=== PATIENT | female | born 1975 | race Caucasian/White ===

== ENCOUNTER → 2016-10-14 | Outpatient (CLI) | payer OTHER ==
[2016-10-14 17:50] LABS: ANION GAP 10 (5-19); BLOOD UREA NITROGEN 17 mg/dL (7-20); CALCIUM 9.8 mg/dL (8.4-10.2); CARBON DIOXIDE 31 mmol/L (22-30); CHLORIDE 100 mmol/L (98-107); CREATININE RESULT 1.13 mg/dL (0.52-1.25); GLUCOSE 91 mg/dL (75-110); POTASSIUM 4.4 mmol/L (3.6-5.0); SODIUM 140.6 mmol/L (137-145)
--- NOTE | 2016-10-14 21:59 | EKG REPORT ---
SEVERITY:- NORMAL ECG - SINUS RHYTHM : Confirmed by: Halina Peters MD 14-Oct-2016 21:59:19
== END ==
LOC: CCC 15:56
DX: I10 Essential (primary) hypertension (principal); I50.9 Heart failure, unspecified
CPT/HCPCS: 36415; 80048; 93005; 93010

== ENCOUNTER → 2016-10-23 | Outpatient (CLI) | payer OTHER ==
[~2016-10-23] MED LIST: REGADENOSON INJ 0.4 MG/5 ML DISP.SYRIN IV ONE
--- NOTE | 2016-10-23 10:51 | XCELERA REPORT ---
[address] [address] Transthoracic Echocardiogram Report Name: ALISTAIR CAMACHO Age: 41 yrs Gender: Female : 1975 Patient Status: Outpatient Patient Location: [facility] Study Date: 10/23/2016 09:52 AM Height: 63 in Weight: 313 lb BSA: 2.3 m2 Procedure: A complete two-dimensional transthoracic echocardiogram was performed (2D, M-mode, spectral and color flow Doppler). The study was technically difficult with many images being suboptimal in quality. Reason For Study: HTN, CHF Ordering Physician: [facility] Performed By: Manasa Medel Interpretation Summary The left ventricular ejection fraction is normal. There is mild concentric left ventricular hypertrophy. The left ventricle is grossly normal size. Doppler measurements suggest pseudonormalized left ventricular relaxation, which is associated with grade II/IV or mild to moderate diastolic dysfunction Wall motion cannot be accurately commented on, but no definite regional wall motion abnormalities noted. The right ventricular systolic function is normal. The right ventricle is borderline dilated. The right atrium is normal in size The left atrial size is normal. There is no mitral regurgitation noted. There is no mitral valve stenosis. There is no aortic valve stenosis No aortic regurgitation is present. There is a trace or physiologic amount of tricuspid regurgitation Tricuspid regurgitation jet envelope not well defined to measure RV systolic pressure accurately. The aortic root is not well visualized but is probably normal size. The inferior vena cava appeared normal and decreased < 50% with respiration (RAP 10-15 mmHg) MMode/2D Measurements \T\ Calculations RVDd: 3.2 cm LVIDd: 5.1 cmFS: 23.0 % Ao root diam: 3.3 cm IVSd: 1.2 cm LVIDs: 4.0 cmEDV(Teich): 126.3 ml LVPWd: 1.2 cmESV(Teich): 68.4 ml Ao root area: 8.8 cm2 EF(Teich): 45.9 % LA dimension: 3.4 cm LVOT diam: 2.5 cm LVOT area: 5.0 cm2 Doppler Measurements \T\ Calculations MV E max abimael: MV P1/2t max abimael: Ao V2 max: LV V1 max P.7 cm/sec 123.9 cm/sec 203.2 cm/sec 5.2 mmHg MV A max abimael: MV P1/2t: 48.7 msec Ao max PG: LV V1 max: 109.0 cm/sec MVA(P1/2t): 4.5 cm2 16.5 mmHg 113.5 cm/sec MV E/A: 1.1 MV dec slope: JOSE(V,D): 2.8 cm2 744.6 cm/sec2 MV dec time: 0.15 sec PA V2 max: 102.7 cm/sec PA max P.2 mmHg Left Ventricle The left ventricle is grossly normal size. There is mild concentric left ventricular hypertrophy. The left ventricular ejection fraction is normal. Doppler measurements suggest pseudonormalized left ventricular relaxation, which is associated with grade II/IV or mild to moderate diastolic dysfunction. Wall motion cannot be accurately commented on, but no definite regional wall motion abnormalities noted. Right Ventricle The right ventricle is borderline dilated. There is normal right ventricular wall thickness. The right ventricular systolic function is normal. Atria The right atrium is normal in size. The left atrial size is normal. Interarterial septum not well visualized and not well dopplered. Cannot comment on ASD/PFO presence. Mitral Valve The mitral valve is grossly normal. There is no mitral valve stenosis. There is no mitral regurgitation noted. Aortic Valve The aortic valve is grossly normal. There is no aortic valve stenosis. No aortic regurgitation is present. Tricuspid Valve The tricuspid valve is not well visualized secondary to technical limitations. There is no tricuspid stenosis. Tricuspid regurgitation jet envelope not well defined to measure RV systolic pressure accurately. There is a trace or physiologic amount of tricuspid regurgitation. Pulmonic Valve The pulmonic valve is not well visualized. Great Vessels The aortic root is not well visualized but is probably normal size. The inferior vena cava appeared normal and decreased < 50% with respiration (RAP 10-15 mmHg). Effusions There is no pericardial effusion. : [facility] > Tor Saul
== END ==
LOC: RAD 07:55
DX: I50.9 Heart failure, unspecified (principal); I10 Essential (primary) hypertension
CPT/HCPCS: 93306; 93017; 78452; A9500; J2785; Q9969

== ENCOUNTER → 2016-12-23 | Outpatient (CLI) | payer OTHER ==
[2016-12-23 11:12] LABS: CHOLESTEROL 152.55 mg/dL (0-200); CREATININE RESULT 1.09 mg/dL (0.52-1.25); Direct HDL 64 mg/dL (>40); TRIGLYCERIDES 107 mg/dL (<150)
[2016-12-23 11:22] LABS: DIRECT LDL 70 mg/dL (<100)
[2016-12-24 07:11] LABS: FOLLICLE STIMULATING HORMONE 7.6 mIU/mL (.)
== END ==
LOC: OD 09:37
DX: I10 Essential (primary) hypertension (principal); N91.2 Amenorrhea, unspecified
CPT/HCPCS: 36415; 80061; 82565; 82947; 82950; 83001; 84402; 84403; 84443

== ENCOUNTER → 2017-01-07 | Outpatient (CLI) | payer OTHER | LOC: OD 21:28 | DX: R73.01 Impaired fasting glucose (principal) | CPT/HCPCS: 36415; 83036 ==

== ENCOUNTER → 2017-01-09 | Outpatient (CLI) | payer OTHER | LOC: RAD 12:35 | DX: E66.01 Morbid (severe) obesity due to excess calories (principal); L68.0 Hirsutism; N91.2 Amenorrhea, unspecified | CPT/HCPCS: 76856 ==

== ENCOUNTER → 2017-04-09 | Outpatient (CLI) | payer OTHER ==
--- NOTE | 2017-04-13 08:48 | WOMENS IMAGING REPORT ---
EXAM DESCRIPTION: BILAT SCREENING MAMMO W/CAD COMPLETED DATE/TIME: 04/09/2017 9:07 am REASON FOR STUDY: ROUTINE SCREENING; Z12.31 Z12.31 ENCNTR SCREEN MAMMOGRAM FOR MALIGNANT NEOPLASM O F PARDEEP COMPARISON: No previous, baseline TECHNIQUE: Standard craniocaudal and mediolateral oblique views of each breast recorded using [employer] l acquisition. LIMITATIONS: None. FINDINGS: Findings present which are benign by mammographic criteria. No suspicious masses, calcifi cations or architectural distortion. Pertinent benign findings: Benign skin and breast parenchymal calcifications. Postsurgical changes f rom bilateral breast reduction Read with the assistance of CAD. .[facility] - R2 Cenova Version 1.3 .[facility] Imaging - R2 Cenova Version 1.3 .[facility] Imaging - R2 Cenova Version 2.4 .[facility] - R2 Cenova Version 2.4 .[facility] - R2 Band Saw Filer Version 9.2 Benign mammographic findings may include one or more of the following: Smooth masses, popcorn/rim/co arse calcifications, asymmetries, post-procedure changes, and lesions with long-standing stability. IMPRESSION: BENIGN MAMMOGRAPHIC FINDINGS. BIRADS 2 BREAST DENSITY: a. The breasts are almost entirely fatty. BIRAD: 2 BENIGN FINDING(S) RECOMMENDATION: ROUTINE SCREENING Please consider bilateral screening tomosynthesis in March 2018 COMMENT: The patient has been notified of the results by letter per SA requirements. Additional no tification policies are in place for contacting patient with suspicious or incomplete findings. Quality ID #[id number]: The [employer] recommends an annual screening mammogram for women aged 40 years or over. This facility utilizes a reminder system to ensure that all patients receive reminder letters, and/or direct phone calls for appointments. This includes reminders for routine scr eening mammograms, diagnostic mammograms, or other Breast Imaging Interventions when appropriate. Th is patient will be placed in the appropriate reminder system. The [employer] (ACR) has developed recommendations for screening MRI of the breast s in certain patient populations, to be used in conjunction with mammography. Breast MRI surveillanc e may be appropriate for women with more than 20% lifetime risk of developing breast cancer as deter mined by genetic testing, significant family history of the disease, or history of mantle radiation f or Hodgkins Disease. ACR Practice Guidelines 2008. TECHNICAL DOCUMENTATION: FINDING NUMBER: (1) ASSESSMENT: (1) JOB ID: [id number] [employer]- All Rights Reserved
== END ==
LOC: WI 08:43
PROVIDERS: ATTEND Family Medicine
DX: Z12.31 Encounter for screening mammogram for malignant neoplasm of breast (principal)
CPT/HCPCS: 77067; G0202

== ENCOUNTER → 2017-05-19 | Outpatient (CLI) | payer OTHER ==
[2017-05-19 12:05] LABS: ANION GAP 11 (5-19); BLOOD UREA NITROGEN 16 mg/dL (7-20); CALCIUM 9.8 mg/dL (8.4-10.2); CARBON DIOXIDE 30 mmol/L (22-30); CHLORIDE 101 mmol/L (98-107); CREATININE RESULT 1.01 mg/dL (0.52-1.25); GLUCOSE 132 mg/dL (75-110); POTASSIUM 4.8 mmol/L (3.6-5.0); SODIUM 141.8 mmol/L (137-145)
== END ==
LOC: CCC 10:59
DX: E11.8 Type 2 diabetes mellitus with unspecified complications (principal)
CPT/HCPCS: 36415; 80048; 83036

== ENCOUNTER → 2017-09-02 | Outpatient (CLI) | payer OTHER | LOC: CCC 15:26 | DX: E11.8 Type 2 diabetes mellitus with unspecified complications (principal) | CPT/HCPCS: 36415; 83036 ==

== ENCOUNTER 2017-10-26 22:03 | Emergency (ER) | payer MEDICARE, OTHER ==
[2017-10-26 23:10] VITALS: BP 144/75
--- NOTE | 2017-10-27 00:40 | RADIOLOGY REPORT (SQ) ---
EXAM DESCRIPTION: FOOT RIGHT COMPLETE CLINICAL HISTORY: ankle/ foot injury COMPARISON: None. FINDINGS: 3 views of the right foot. No acute fracture or dislocation. The tarsals and metatarsals appear appropriately aligned. Plantar calcaneal spur. Enthesophyte at the Achilles tendon insertion. Normal osseous mineralization. Diffuse soft tissue swelling. IMPRESSION: 1. No acute fracture or dislocation.
--- NOTE | 2017-10-27 00:40 | RADIOLOGY REPORT (SQ) ---
EXAM DESCRIPTION: ANKLE RIGHT COMPLETE CLINICAL HISTORY: ankle/ foot injury COMPARISON: None. FINDINGS: 3 views of the right ankle. Tibial plafond and talar dome are appropriately aligned. Diffuse soft tissue swelling. No acute fracture or dislocation. Base of the fifth metatarsal appears intact. Plantar calcaneal spur. Enthesophyte at the Achilles tendon insertion. IMPRESSION: No acute fracture or dislocation.
[2017-10-27] MEDS ORDERED: COLCHICINE 0.6 MG TABLET PO ONE ×2 (00:58)
--- NOTE | 2017-10-27 01:00 | ER Document Report ---
ED General - General Chief Complaint: Ankle Pain Stated Complaint: FOOT/ANKLE PAIN Time Seen by Provider: 10/27/17 00:17 Notes: She is a 42-year-old female presents with complaint of pain in her right foot. Patient says she first noticed a few days ago. She said she does not think she injured it but she noticed when she went to step off a porch step and she felt pain into her right big toe. She said she then had some swelling and pain into her right first metatarsophalangeal joint. Since then swelling and pain has spread into the remainder of her foot. No pain into her leg knee or thigh. No history of gout. She does have history of cellulitis in her left foot. She is diabetic. No recent abrasions lacerations to the foot. TRAVEL OUTSIDE OF THE [place] IN LAST 30 DAYS: No - Related Data Allergies/Adverse Reactions: acetaminophen [From Vicodin] Allergy (Verified 12/31/15 00:12) codeine [Codeine] Allergy (Verified 12/31/15 00:12) hydrocodone bitartrate [From Vicodin] Allergy (Verified 12/31/15 00:12) sumatriptan [From Imitrex] Allergy (Verified 12/31/15 00:12) sumatriptan succinate [From Imitrex] Allergy (Verified 12/31/15 00:12) Past Medical History - Social History Smoking Status: Unknown if Ever Smoked Frequency of alcohol use: None Drug Abuse: None Family History: Reviewed & Not Pertinent Patient has suicidal ideation: No Patient has homicidal ideation: No - Past Medical History Cardiac Medical History: Reports: Hx Congestive Heart Failure Pulmonary Medical History: Reports: Hx Bronchitis, Hx Pneumonia Neurological Medical History: Reports: Hx Migraine Renal/ Medical History: Reports: Hx Kidney Stones. Denies: Hx Peritoneal Dialysis GI Medical History: Reports: Hx Diverticulitis Psychiatric Medical History: Reports: Hx Attention Deficit Hyperactivity Disorder, Hx Depression Past Surgical History: Reports: Hx Breast Surgery - Reduction, Hx Cholecystectomy, Hx Oral Surgery - [place], Hx Orthopedic Surgery - plantar fascitis left and right foot, Hx Tubal Ligation - Immunizations Immunizations up to date: Yes Hx Diphtheria, Pertussis, Tetanus Vaccination: Yes Hx Pneumococcal Vaccination: 05/15/14 Review of Systems - Review of Systems Notes: My Normal Review Basic REVIEW OF SYSTEMS: CONSTITUTIONAL : Denies fever, chills, or sweats. Denies recent illness. MUSCULOSKELETAL: Right foot pain SKIN: Denies rash or skin lesions. NEUROLOGICAL: Denies sensory or motor loss. ALL OTHER SYSTEMS REVIEWED AND NEGATIVE. Physical Exam - Vital signs Vitals: Temp Pulse Resp BP Pulse Ox 98.4 F 89 14 144/75 H 97 10/26/17 23:09 10/26/17 23:09 10/26/17 23:09 10/26/17 23:09 10/26/17 23:09 - Notes Notes: General Appearance: Well nourished, alert, cooperative, no acute distress, mild to moderate obvious discomfort. Vitals: reviewed, See vital signs table. Extremities: good pulses in all extremities, patient does have moderate swelling that is only in the right foot itself. The leg itself does not have any further swelling. There is a faint redness over the dorsum of the foot. She does have darker redness and swelling at the first metatarsophalangeal joint. There are no abrasions or wounds to the foot. She has good capillary refill in all toes. Good distal sensation. Good pulses. Foot is diffusely tender to palpation. Skin: warm, dry, appropriate color, no rash Neuro: speech clear, oriented x 3, normal affect, responds appropriately to questions. Course - Re-evaluation Re-evalutation: 10/27/17 06:44 I suspect that she most likely has gout. She does have a previous history of cellulitis and is diabetic and therefore I will still cover for possible cellulitis. Informed patient I think is less likely cellulitis being that the redness of the foot is more of a faint pink; however, she does have swelling this spreads will be on just the first MTP and therefore felt saline is still possible because the amount of swelling she has in her foot is atypical for gout itself. I think most likely this will be gout mainly because the pain is swelling to start in the first metatarsophalangeal joint. I have given the patient colchicine. Started on indomethacin as well as doxycycline. I encouraged her return to ER immediately if she has increased swelling, spreading redness, or fevers. I encouraged her follow-up closely with her primary care doctor. Patient agrees with plan will be discharged home. Dictation of this chart was performed using voice recognition software; therefore, there may be some unintended grammatical errors. - Vital Signs Vital signs: Temp Pulse Resp BP Pulse Ox 98.4 F 89 14 144/75 H 97 10/26/17 23:09 10/26/17 23:09 10/26/17 23:09 10/26/17 23:09 10/26/17 23:09 Discharge - Discharge Clinical Impression: Foot pain, right Condition: Good Disposition: HOME, SELF-CARE Additional Instructions: Gout Diet Changing your diet can decrease the uric acid in your blood. High levels of uric acid cause gouty arthritis and uric acid kidney stones. If you have gout , you should avoid meats that are high in purine. Meat products to avoid include liver, kidneys, and brains. In general, poultry is better than red meats. Seafoods to avoid include anchovies, sardines, alvarado, mackerel, and scallops. In addition to limiting purine-rich foods, people with gout should limit protein intake to 10-15% of total calories. Carbohydrate intake should be around 50% of total daily calories. Limit fat intake to 30% of total daily calories. Cholesterol intake should be less than 300 mg/day. Maintain or achieve a healthy body weight. Weight loss should be gradual. Rapid weight loss can actually increase uric acid levels temporarily. Alcohol, especially beer, should be avoided. Get plenty of fluids. This dilutes urinary uric acid, and helps prevent uric acid kidney stones. Drink eight to twelve cups of water daily. I suspect that most likely you have gout based on the fact that the pain and swelling initiated in your big toe. You are diabetic and there is some associated redness and swelling in your foot and therefore cellulitis is also possibility. I think it is less likely being that the redness is more faint; however, you do have a previous history of cellulitis in your foot. I will therefore treat you for both gout as well as cellulitis. You need to return to the ER immediately if you have any spreading redness, swelling, or fevers, or worsening pain in your foot. Prescriptions: Doxycycline Hyclate 100 mg PO BID #14 tablet Indomethacin [Indocin 50 mg Capsule] 50 mg PO TID #15 capsule Referrals: YOHAN PHAN MD [Primary Care Provider] - Follow up in 3-5 days
[2017-10-27] MEDS ORDERED: DOXYCYCLINE HYCLATE 100 MG TABLET PO ONE (01:03)
[2017-10-27] MEDS ORDERED: INDOMETHACIN 50 MG CAPSULE PO ONE (01:03)
== END 2017-10-27 01:30 | disposition home or self-care (01) ==
LOC: ER 22:03
DX: M79.671 Pain in right foot (principal); M25.571 Pain in right ankle and joints of right foot; M79.89 Other specified soft tissue disorders; E11.9 Type 2 diabetes mellitus without complications; X58.XXXA Exposure to other specified factors, initial encounter
CPT/HCPCS: 99283; 73610; 73630; A9270 ×3; J3490

== ENCOUNTER → 2017-11-06 | Outpatient (CLI) | payer MEDICARE, OTHER ==
--- NOTE | 2017-11-06 14:44 | RADIOLOGY REPORT (SQ) ---
EXAM DESCRIPTION: CHEST PA/LAT COMPLETED DATE/TIME: 11/06/2017 2:06 pm REASON FOR STUDY: E66.01 MORBID (SEVERE) OBESITY DUE TO EXCESS CALORIES I10 ESSENTIAL (PRIMAR E66.01 MORBID (SEVERE) OBESITY DUE TO EXCESS CALORIES I10 ESSENTIAL (PRIMARY) HYPERTENSION E11.9 TYPE 2 DIABETES MELLITUS WITHOUT COMPLICATIONS COMPARISON: 05/14/2014. NUMBER OF VIEWS: Two view. TECHNIQUE: Frontal and lateral radiographic views of the chest acquired. LIMITATIONS: None. FINDINGS: LUNGS AND PLEURA: No opacities, masses or pneumothorax. No pleural effusion. MEDIASTINUM AND HILAR STRUCTURES: No masses. No contour abnormalities. HEART AND VASCULAR STRUCTURES: Heart enlarged without failure. Aorta normal for age. BONES: No acute findings. HARDWARE: None in the chest. OTHER: No other significant finding. IMPRESSION: CARDIAC ENLARGEMENT WITHOUT FAILURE. TECHNICAL DOCUMENTATION: JOB ID: [id number] [employer]- All Rights Reserved Reading location - IP/workstation name: [email or web address]
[2017-11-06 14:54] LABS: ABSOLUTE BASOPHILS # (AUTO) 0.1 10^3/uL (0.0-0.2); ABSOLUTE EOSINOPHILS # (AUTO) 0.3 10^3/uL (0.0-0.6); ABSOLUTE LYMPHOCYTES (AUTO) 2.2 10^3/uL (0.5-4.7); ABSOLUTE MONOCYTES (AUTO) 0.6 10^3/uL (0.1-1.4); ABSOLUTE NEUT (AUTO) 3.8 10^3/uL (1.7-8.2); BASOPHILS % (AUTO) 0.8 % (0-2); EOSINOPHILS % (AUTO) 3.8 % (0-6); HEMATOCRIT 44.9 % (36.0-47.0); HEMOGLOBIN 14.9 g/dL (12.0-15.5); LYMPHOCYTES % (AUTO) 31.8 % (13-45); MEAN CORPUSCULAR HGB CONC 33.2 g/dL (32.0-36.0); MEAN CORPUSCULAR VOLUME 96 fl (80-97); MONOCYTES % (AUTO) 8.7 % (3-13); PLATELET COUNT 243 10^3/uL (150-450); RED BLOOD COUNT 4.67 10^6/uL (3.72-5.28); RED CELL DISTRIBUTION WIDTH 14.3 % (11.5-14.0); SEGMENTED NEUTROPHILS % (AUTO) 54.9 % (42-78); TOTAL CELLS COUNTED % (AUTO) 100 %
[2017-11-06 15:07] LABS: ALANINE AMINOTRANSFERASE 68 U/L (9-52); ALBUMIN 4.3 g/dL (3.5-5.0); ALKALINE PHOSPHATASE 101 U/L (38-126); ANION GAP 8 (5-19); ASPARTATE AMINO TRANSFERASE 46 U/L (14-36); BILIRUBIN,DIRECT 0.4 mg/dL (0.0-0.4); BILIRUBIN,TOTAL 0.7 mg/dL (0.2-1.3); BLOOD UREA NITROGEN 16 mg/dL (7-20); CALCIUM 9.7 mg/dL (8.4-10.2); CARBON DIOXIDE 30 mmol/L (22-30); CHLORIDE 104 mmol/L (98-107); GLUCOSE 122 mg/dL (75-110); POTASSIUM 4.4 mmol/L (3.6-5.0); SODIUM 141.9 mmol/L (137-145); TOTAL PROTEIN 7.2 g/dL (6.3-8.2)
--- NOTE | 2017-11-06 20:51 | EKG REPORT ---
SEVERITY:- ABNORMAL ECG - SINUS RHYTHM NONSPECIFIC INTRAVENTRICULAR CONDUCTION DELAY : Confirmed by: Castro Spence MD 06-Nov-2017 20:50:50
== END ==
LOC: RAD 13:44
PROVIDERS: ATTEND Surgery
DX: Z01.810 Encounter for preprocedural cardiovascular examination (principal); Z01.811 Encounter for preprocedural respiratory examination; Z01.812 Encounter for preprocedural laboratory examination; Z01.818 Encounter for other preprocedural examination; E11.9 Type 2 diabetes mellitus without complications; I10 Essential (primary) hypertension; E66.01 Morbid (severe) obesity due to excess calories
CPT/HCPCS: 36415; 71046; 80053; 84443; 85025; 93005; 93010

== ENCOUNTER 2018-05-19 14:56 | Emergency (ER) | payer MEDICARE, MEDICAID ==
--- NOTE | 2018-05-19 16:10 | ER Document Report ---
ED Medical Screen (RME) - General Chief Complaint: Leg Pain Stated Complaint: LEGS/FEET NUMBNESS Time Seen by Provider: 05/19/18 15:58 Mode of Arrival: Ambulatory Information source: Patient Notes: Patient is a 42-year-old female who presents with chief complaint of bilateral leg and feet pain. Patient reports this pain has been going on for approximately 45 days. Patient has been seen by her primary care provider Dr. Jayden Pool who diagnosed her with neuropathy. He referred her to a computer hardware developer who has tried orthotics and vitamin therapy. Patient reports none of this is helping. Patient reports she was supposed to have a follow-up appointment today at 130 however she showed up late so they canceled the appointment. Patient states the pain is uncontrollable and she came to the ER unsure of what else to do. I did explain to the patient that there was no lab work or imaging indicated at this time. Patient will be waiting to see a provider in the back for a full physical assessment. Exam: No acute distress noted. Patient ambulates with slow but steady gait. I have greeted and performed a rapid initial assessment of this patient. A comprehensive ED assessment and evaluation of the patient, analysis of test results and completion of the medical decision making process will be conducted by additional ED providers. Dictation of this chart was performed using voice recognition software; therefore, there may be some unintended grammatical errors. TRAVEL OUTSIDE OF THE [place] IN LAST 30 DAYS: No - Related Data Allergies/Adverse Reactions: acetaminophen [From Vicodin] Allergy (Verified 05/19/18 14:59) codeine [Codeine] Allergy (Verified 05/19/18 14:59) hydrocodone bitartrate [From Vicodin] Allergy (Verified 05/19/18 14:59) sumatriptan [From Imitrex] Allergy (Verified 05/19/18 14:59) sumatriptan succinate [From Imitrex] Allergy (Verified 05/19/18 14:59) Past Medical History - Social History Family history: Reviewed & Not Pertinent - Past Medical History Cardiac Medical History: Reports: Hx Congestive Heart Failure Pulmonary Medical History: Reports: Hx Bronchitis, Hx Pneumonia Neurological Medical History: Reports: Hx Migraine Renal/ Medical History: Reports: Hx Kidney Stones. Denies: Hx Peritoneal Dialysis GI Medical History: Reports: Hx Diverticulitis Psychiatric Medical History: Reports: Hx Attention Deficit Hyperactivity Disorder, Hx Depression Past Surgical History: Reports: Hx Breast Surgery - Reduction, Hx Cholecystectomy, Hx Oral Surgery - [place], Hx Orthopedic Surgery - plantar fascitis left and right foot, Hx Tubal Ligation - Immunizations Immunizations up to date: Yes Hx Diphtheria, Pertussis, Tetanus Vaccination: Yes Physical Exam - Vital signs Vitals: Temp Pulse Resp BP Pulse Ox 98.6 F 96 14 155/97 H 94 05/19/18 15:02 05/19/18 15:02 05/19/18 15:02 05/19/18 15:02 05/19/18 15:02 Course - Vital Signs Vital signs: Temp Pulse Resp BP Pulse Ox 98.6 F 96 14 155/97 H 94 05/19/18 15:02 05/19/18 15:02 05/19/18 15:02 05/19/18 15:02 05/19/18 15:02 Doctor's Discharge - Discharge Referrals: YOHAN POOL MD [Primary Care Provider] - Follow up as needed
--- NOTE | 2018-05-19 16:41 | ER Document Report ---
HPI - HPI Patient complains to provider of: bilateral feet pain Onset: Other - 2 months Pain Level: 4 Context: 42 yo female c/o bilateral feet burning, tingling, stabbing pain for 2 months. Saw early Yrn who sent her to a senior production supervisor for nerve conduction test because he thinks it is peripheral neuropathy. She was unable to have her second appointment in Dr. Cross just wanted her to use orthotics. The patient had another appointment with [facility] podiatry in [place] and there was a mixup on the appointment time so they canceled that appointment. She is here because of the pain which is keeping her from resting at night. Associated Symptoms: None Exacerbated by: Standing, Walking Relieved by: Denies Similar symptoms previously: Yes Recently seen / treated by doctor: Yes - ROS ROS below otherwise negative: Yes Systems Reviewed and Negative: Yes All other systems reviewed and negative - REPRODUCTIVE Reproductive: DENIES: : - DERM Skin Color: Normal Past Medical History - General Information source: Patient - Social History Smoking Status: Never Smoker Lives with: Spouse/Significant other Family History: Reviewed & Not Pertinent Patient has suicidal ideation: No Patient has homicidal ideation: No - Past Medical History Cardiac Medical History: Reports: Hx Congestive Heart Failure Pulmonary Medical History: Reports: Hx Bronchitis, Hx Pneumonia Neurological Medical History: Reports: Hx Migraine Renal/ Medical History: Reports: Hx Kidney Stones. Denies: Hx Peritoneal Dialysis GI Medical History: Reports: Hx Diverticulitis Psychiatric Medical History: Reports: Hx Attention Deficit Hyperactivity Disorder, Hx Depression Past Surgical History: Reports: Hx Breast Surgery - Reduction, Hx Cholecystectomy, Hx Oral Surgery - [place], Hx Orthopedic Surgery - plantar fascitis left and right foot, Hx Tubal Ligation - Immunizations Immunizations up to date: Yes Hx Diphtheria, Pertussis, Tetanus Vaccination: Yes Hx Pneumococcal Vaccination: 05/15/14 Vertical Provider Document - CONSTITUTIONAL Agree With Documented VS: Yes Exam Limitations: No Limitations - INFECTION CONTROL TRAVEL OUTSIDE OF THE [place] IN LAST 30 DAYS: No - HEENT HEENT: Normal ENT Exam, Normocephalic - NECK Neck: Supple, Thyroid Normal - MUSCULOSKELETAL/EXTREMETIES Musculoskeletal/Extremeties: MAEW, FROM, Tender - to light touch to both feet Course - Re-evaluation Re-evalutation: 05/19/18 18:52 Chemistry still pending because she was busy per the shift lab technician. 05/19/18 labs OK except for elevated AST, copies given to her for PCP follow up - Vital Signs Vital signs: Temp Pulse Resp BP Pulse Ox 98.6 F 96 14 155/97 H 94 05/19/18 15:02 05/19/18 15:02 05/19/18 15:02 05/19/18 15:02 05/19/18 15:02 - Laboratory Result Diagrams: 05/19/18 17:15 05/19/18 17:15 Discharge - Discharge Clinical Impression: Paresthesia of foot, bilateral, Elevated AST (SGOT) Condition: Good Disposition: HOME, SELF-CARE Instructions: Numbness or Paresthesia ([facility]) Additional Instructions: Follow-up with [facility] podiatry on May 28 as planned and see them for primary care. Schedule an appointment with family practice or internal medicine doctor at [facility] Try the pain medication at night to see if that helps Return to the emergency room for any worsening of symptoms Copy of lab were given to you, 1 of you liver enzymes is elevated Prescriptions: Oxycodone HCl/Acetaminophen [Percocet 5-325 mg Tablet] 1 tab PO ASDIR PRN #10 tablet PRN Reason: Referrals: YOHAN PHAN MD [Primary Care Provider] - Follow up tomorrow
[2018-05-19 17:38] LABS: ABSOLUTE EOSINOPHILS # (AUTO) 0.1 10^3/uL (0.0-0.6); ABSOLUTE LYMPHOCYTES (AUTO) 1.8 10^3/uL (0.5-4.7); ABSOLUTE MONOCYTES (AUTO) 0.5 10^3/uL (0.1-1.4); BASOPHILS % (AUTO) 0.7 % (0-2); EOSINOPHILS % (AUTO) 2.3 % (0-6); HEMATOCRIT 42.7 % (36.0-47.0); LYMPHOCYTES % (AUTO) 27.5 % (13-45); MEAN CORPUSCULAR HEMOGLOBIN 32.8 pg (27.0-33.4); MEAN CORPUSCULAR HGB CONC 32.8 g/dL (32.0-36.0); MEAN CORPUSCULAR VOLUME 100 fl (80-97); MONOCYTES % (AUTO) 7.3 % (3-13); PLATELET COUNT 232 10^3/uL (150-450); RED BLOOD COUNT 4.26 10^6/uL (3.72-5.28); SEGMENTED NEUTROPHILS % (AUTO) 62.2 % (42-78); TOTAL CELLS COUNTED % (AUTO) 100 %; WHITE BLOOD COUNT 6.4 10^3/uL (4.0-10.5)
[2018-05-19 18:57] LABS: ALANINE AMINOTRANSFERASE 50 U/L (9-52); ALBUMIN 4.2 g/dL (3.5-5.0); ALKALINE PHOSPHATASE 99 U/L (38-126); ANION GAP 9 (5-19); ASPARTATE AMINO TRANSFERASE 100 U/L (14-36); BILIRUBIN,DIRECT 0.5 mg/dL (0.0-0.4); BILIRUBIN,TOTAL 1.2 mg/dL (0.2-1.3); BLOOD UREA NITROGEN 12 mg/dL (7-20); CALCIUM 9.6 mg/dL (8.4-10.2); CARBON DIOXIDE 33 mmol/L (22-30); CHLORIDE 98 mmol/L (98-107); GLUCOSE 110 mg/dL (75-110); POTASSIUM 3.5 mmol/L (3.6-5.0); SODIUM 139.8 mmol/L (137-145); TOTAL PROTEIN 7.6 g/dL (6.3-8.2)
[2018-05-19 19:38] VITALS: BP 148/86
== END 2018-05-19 19:37 | disposition home or self-care (01) ==
LOC: ER 14:56
DX: M79.672 Pain in left foot (principal); M79.671 Pain in right foot; I50.9 Heart failure, unspecified; Z87.442 Personal history of urinary calculi; Z90.49 Acquired absence of other specified parts of digestive tract; Z98.51 Tubal ligation status
CPT/HCPCS: 36415; 80053; 82962; 83735; 85025; 99283

== ENCOUNTER → 2018-05-22 | Outpatient (CLI) | payer MEDICARE, MEDICAID | LOC: LAB 13:49 | PROVIDERS: ATTEND Internal Medicine | DX: E53.8 Deficiency of other specified B group vitamins (principal) | CPT/HCPCS: 36415; 82607 ==

== ENCOUNTER → 2018-06-21 | Outpatient (CLI) | payer MEDICARE, MEDICAID ==
--- NOTE | 2018-06-22 08:22 | RADIOLOGY REPORT (SQ) ---
EXAM DESCRIPTION: MRI HEAD COMBO COMPLETED DATE/TIME: 06/21/2018 6:12 pm REASON FOR STUDY: R55 SYNCOPE AND COLLAPSE R55 SYNCOPE AND COLLAPSE COMPARISON: None. TECHNIQUE: Multiplanar imaging includes noncontrasted T1, T2, FLAIR, diffusion with ADC map and post gadolinium contrast T1 sequences. Images stored on PACS. CONTRAST TYPE AND DOSE: 15 mL Dotarem. RENAL FUNCTION: GFR > 60. LIMITATIONS: None. FINDINGS: ANATOMY: No anomalies. Normal vascular flow voids. Pituitary fossa normal. CSF SPACES: Normal in size and contour. No hemorrhage. CEREBRUM: Sulci and gyri normal in size and contour. Normal white matter signal on FLAIR imaging. No evidence of hemorrhage, mass, or extraaxial fluid collection. No abnormal enhancement post contrast. POSTERIOR FOSSA: No signal alteration. No hemorrhage. No edema, masses, or mass effect. Internal mynor tory canals, cerebellopontine angles, mastoids normal. No enhancing lesions. No abnormal enhancement post contrast. DIFFUSION IMAGING: Negative for acute or subacute infarction. ORBITS: No masses. Globes normal. PARANASAL SINUSES: No fluid levels. Mucous retention cyst in the left maxillary sinus. OTHER: No other significant finding. IMPRESSION: NORMAL MRI OF THE BRAIN WITHOUT AND WITH INTRAVENOUS GADOLINIUM CONTRAST. INCIDENTAL MUCOUS RETENTION CYST IN THE LEFT MAXILLARY SINUS. EVIDENCE OF ACUTE STROKE: NO. TECHNICAL DOCUMENTATION: JOB ID: [id number] [employer]- All Rights Reserved Reading location - IP/workstation name: [email or web address]
== END ==
LOC: RAD 17:53
PROVIDERS: ATTEND Physician Assistant
DX: R55 Syncope and collapse (principal)
CPT/HCPCS: 70553; 82565

== ENCOUNTER → 2018-07-01 | Outpatient (CLI) | payer MEDICAID, MEDICARE ==
--- NOTE | 2018-07-02 13:27 | RADIOLOGY REPORT (SQ) ---
EXAM DESCRIPTION: MRI ABDOMEN WITHOUT COMPLETED DATE/TIME: 07/01/2018 7:50 pm REASON FOR STUDY: R74.8 ABNORMAL LEVELS OF OTHER SERUM ENZYMES R74.8 ABNORMAL LEVELS OF OTHER SERUM ENZYMES COMPARISON: CT angio chest 05/23/2014 TECHNIQUE: Noncontrast imaging with attention to the liver, including in and out of phase T1 sequenc es, T2, stir images as well. LIMITATIONS: None. FINDINGS: ADRENAL GLANDS: Normal configuration. No mass. GALLBLADDER: Surgically absent LIVER AND BILIARY STRUCTURES: Normal. No ductal dilatation. No common duct stones are identified SPLEEN: Normal. PANCREAS: Normal. Peripancreatic tissues normal. PERITONEUM: No ascites, gross adenopathy or implants. KIDNEYS: Normal size. No masses. No hydronephrosis. Benign renal parapelvic cysts are present. OTHER: Small hiatal hernia. IMPRESSION: Post cholecystectomy. Non contrasted MRI of the liver and biliary system is unremarkabl e. TECHNICAL DOCUMENTATION: JOB ID: [id number] [employer]- All Rights Reserved Reading location - IP/workstation name: [facility]
== END ==
LOC: RAD 19:45
PROVIDERS: ATTEND Physician Assistant
DX: R74.8 Abnormal levels of other serum enzymes (principal)
CPT/HCPCS: 74181

== ENCOUNTER → 2020-02-03 | Outpatient (CLI) | payer MEDICARE, MEDICAID ==
--- NOTE | 2020-02-03 13:57 | WOMENS IMAGING REPORT ---
EXAM DESCRIPTION: BILAT SCREENING MAMMO W/CAD IMAGES COMPLETED DATE/TIME: 02/03/2020 10:31 am REASON FOR STUDY: Z12.31 ENCOUNTER FOR SCREENING MAMMOGRAM FOR MALIGNANT NEOPLASM OF BREAST Z12.31 ENCNTR SCREEN MAMMOGRAM FOR MALIGNANT NEOPLASM OF PARDEEP COMPARISON: 04/09/2017. EXAM PARAMETERS: Standard craniocaudal and mediolateral oblique views of each breast recorded using digital acquisition. Read with the assistance of CAD. .[facility] [employer] Version 9.2 LIMITATIONS: None. FINDINGS: Findings present which are benign by mammographic criteria. No suspicious masses, calcifi cations or architectural distortion. Pertinent benign findings: Benign calcifications. Benign mammographic findings may include one or more of the following: Smooth masses, popcorn/rim/co arse calcifications, asymmetries, post-procedure changes, and lesions with long-standing stability. IMPRESSION: BENIGN MAMMOGRAPHIC FINDINGS. BIRADS 2 BREAST DENSITY: a. The breasts are almost entirely fatty. BIRAD: ASSESSMENT: 2 BENIGN FINDING(S) RECOMMENDATION: ROUTINE SCREENING COMMENT: The patient has been notified of the results by letter per [place] requirements. Additional no tification policies are in place for contacting patient with suspicious or incomplete findings. Quality ID #[id number]: [employer] recommends an annual screening mammogram for women aged 40 years or over. This facility utilizes a reminder system to ensure that all patients receive reminder letters, and/or direct phone calls for appointments. This includes reminders for routine scr eening mammograms, diagnostic mammograms, or other Breast Imaging Interventions when appropriate. Th is patient will be placed in the appropriate reminder system. TECHNICAL DOCUMENTATION: FINDING NUMBER: (1) ASSESSMENT: (1) JOB ID: [id number] [employer]- All Rights Reserved Reading location - IP/workstation name: [facility]-RR
== END ==
LOC: WI 10:07
PROVIDERS: ATTEND Internal Medicine
DX: Z12.31 Encounter for screening mammogram for malignant neoplasm of breast (principal)
CPT/HCPCS: 77067